=== PATIENT | male | born 1945 | race Caucasian/White ===

== ENCOUNTER 2018-09-17 08:57 | Outpatient (CLI) | payer OTHER ==
--- NOTE | 2018-09-17 10:04 | XRAY Report ---
Reason: R hand swelling/pain Procedure Date: 09/17/2018 Accession Number: [id number] / [id number] Procedure: XRN - Forearm RT CPT Code: FULL RESULT: EXAM: RIGHT FOREARM RADIOGRAPHY EXAM DATE: 09/17/2018 09:35 AM. CLINICAL HISTORY: Right hand swelling/pain. COMPARISON: None. TECHNIQUE: 2 views. FINDINGS: Bones: Normal. No fractures or bone lesions. Joints: Normal. No effusions or subluxations in the visualized wrist or elbow joints. Soft Tissues: Normal. No soft tissue swelling. IMPRESSION: Normal forearm radiography. [facility]
--- NOTE | 2018-09-17 10:10 | XRAY Report ---
Reason: R hand swelling/pain Procedure Date: 09/17/2018 Accession Number: [id number] / [id number] Procedure: XRN - Hand 3 View RT CPT Code: FULL RESULT: EXAM: RIGHT HAND RADIOGRAPHY EXAM DATE: 09/17/2018 09:35 AM. CLINICAL HISTORY: Right hand swelling/pain. COMPARISON: FOREARM RT 09/17/2018 9:34 AM. TECHNIQUE: 3 views. FINDINGS: Bones: Normal. No fractures or bone lesions. Joints: Mild early degenerative narrowing of the DIPs of the second through fourth digits with early marginal osteophyte. Soft Tissues: Minor nonspecific, swelling over the dorsum of the hand and possibly volar soft tissues of the wrist. IMPRESSION: 1. 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 2. Nonspecific mild soft tissue swelling dorsum of the hand and possibly volar aspect of the wrist. [facility]
== END 2018-09-17 08:58 | disposition home or self-care (01) ==
LOC: DI.N 08:57
PROVIDERS: ATTEND Physician Assistant Medical
DX: M19.041 Primary osteoarthritis, right hand (principal); M79.631 Pain in right forearm